=== PATIENT | female | born 1945 | race Caucasian/White ===

== ENCOUNTER 2018-10-27 14:54 | Outpatient (CLI) | payer MEDICARE | END 2018-10-27 23:59 | disposition home or self-care (01) | LOC: CVU 14:54 | PROVIDERS: ATTEND Internal Medicine Cardiovascular Disease | DX: I83.93 Asymptomatic varicose veins of bilateral lower extremities (principal); I87.2 Venous insufficiency (chronic) (peripheral); G25.81 Restless legs syndrome | CPT/HCPCS: 93970 ==